=== PATIENT | female | born 1970 | race Caucasian/White ===

== ENCOUNTER → 2017-11-23 | Day surgery (SDC) | payer OTHER ==
[2017-11-21 15:08] VITALS: BMI 37.5
[~2017-11-23] MED LIST: ACETAMINOPHEN 325 MG TABLET (FP) PO PRN; BUPIVACAINE HCL/PF 0.5% (5MG/ML) 10 ML VIAL ONE; DESFLURANE GAS 240 ML BOTTLE IH ONE; DEXAMETHASONE SOD PHOSPHATE 4 MG/1 ML VIAL ONE; ENOXAPARIN NA (PORCINE) 40 MG/0.4 ML DISP.SYRIN SQ ONE; FAMOTIDINE 20 MG PREMIXED IVPB IVPB ONE; FAMOTIDINE 20 MG/50 ML IVPB 20 MG/50 ML MG IVPB ONE; FAMOTIDINE 20 MG/50 ML IVPB 20 MG/50 ML MG IVPB SCH; LACTATED RINGERS SOLUTION 1,000 ML IV SCH; MIDAZOLAM HCL 2 MG/2 ML SINGLE DOSE VIAL ONE; ONDANSETRON 4 MG/2 ML VIAL IVPUSH PRN; PROMETHAZINE HCL 25 MG/1 ML VIAL IVPUSH ONE; PROMETHAZINE HCL 25 MG/1 ML VIAL IVPUSH PRN; PROMETHAZINE HCL 25 MG/1 ML VIAL ONE; PROPOFOL 20 ML ONE; ROCURONIUM BROMIDE 50 MG/5 ML VIAL ONE; SODIUM CHLORIDE 1,000 ML IV SCH; SUCCINYLCHOLINE CHLORIDE 200 MG/10 ML VIAL ONE; ceFAZolin SODIUM 1 GM VIAL IVPB ONE; ceFAZolin SODIUM 1 GM VIAL ONE; oxyCODONE HCL 5 MG TABLET PO PRN
[2017-11-23 11:34] LABS: URINE APPEARANCE CLEAR; URINE BILIRUBIN NEGATIVE (<2.0 mg/dL); URINE COLOR YELLOW; URINE GLUCOSE (UA) NEGATIVE (NEGATIVE); URINE KETONE NEGATIVE (NEGATIVE); URINE LEUK ESTERASE TRACE (NEGATIVE); URINE NITRITE NEGATIVE (NEGATIVE); URINE PROTEIN NEGATIVE (NEGATIVE); URINE UROBILINOGEN NEGATIVE mg/dL (0.2-1.0)
[2017-11-23 11:40] LABS: EPI CELLS RARE /HPF (FEW); URINE MUCUS RARE
--- NOTE | 2017-11-23 14:50 | SURG ---
Surgery Surveillance Operator Note Surveillance Operator: Armando Chery PA-C Date of Service: 11/23/17 Diagnosis: Morbid obesity secondary to excess calorie intake Procedure: Laprascopic gastric band, liver biopsy I was present for the entirety of the operative procedure. For further detail, please refer to operative report. Visit type - Case Type Case Type: Scheduled - New patient This patient is new to me today: Yes Date on this admission: 11/23/17
--- NOTE | 2017-11-23 15:24 | OP ---
Operative Note - Note: Operative Date: 11/23/17 Pre-Operative Diagnosis: Morbid Obesity. Elevated LFT Operation: Laparoacopic Gastric Band for Gastric Restriction. Wedge Biopsy of Liver. Diagnostic Laparoscopy Findings: 30 cc Gastric Pouch created with APS Band Wedge biopsy performed on enlarged left lobe of liver Post-Operative Diagnosis: Same as Pre-op (Hepatomegaly) Surgeon: Kunal Sena Station Examiner: Armando Chery Anesthesia: General Specimens Removed: Wedge biopsy of left lobe of liver Estimated Blood Loss (mls): 30 Operative Report Dictated: Yes
[2017-11-23 15:38] LABS: HEMATOCRIT 40.6 % (32.4-45.2); HEMOGLOBIN 13.6 GM/dL (10.7-15.3); MCH 29.8 pg (25.7-33.7); MCHC 33.5 g/dl (32.0-36.0); MEAN CELL VOLUME 88.8 fl (80-96); MEAN PLT VOLUME 7.6 fl (7.5-11.1); PLATELET COUNT 307 K/MM3 (134-434); RBC 4.57 M/mm3 (3.60-5.2); RDW 13.2 % (11.6-15.6)
[2017-11-23 16:00] LABS: ANION GAP 10 (8-16); BLOOD UREA NITROGEN 11 mg/dL (7-18); CALCIUM 8.2 mg/dL (8.5-10.1); CHLORIDE 104 mmol/L (98-107); CO2 25 mmol/L (21-32); CREATININE 0.6 mg/dL (0.55-1.02); GLUCOSE,RANDOM 200 mg/dL (74-106); POTASSIUM 3.7 mmol/L (3.5-5.1); SODIUM 139 mmol/L (136-145)
[2017-11-23 17:43] VITALS: TEMP 98.4
[2017-11-23 18:21] VITALS: BP 139/75; PULSE 90
--- NOTE | 2017-11-24 08:28 | OP ---
DATE OF OPERATION: 11/23/2017 PREOPERATIVE DIAGNOSES: 1. Morbid obesity. 2. Elevated liver function tests. POSTOPERATIVE DIAGNOSES: 1. Morbid obesity. 2. Elevated liver function tests. 3. Hepatomegaly. PROCEDURE PERFORMED: 1. Gastric band for gastric restriction. 2. Wedge biopsy of the left lobe of the liver. 3. Diagnostic laparoscopy. OPERATING SURGEON: Kunal Sena MD PROPERTY SUPERVISOR: YAMILET Cruz ANESTHESIA: General. OPERATIVE PROCEDURE: The patient was brought into the operating room, placed on the OR table in the supine position. All precautions were taken initially including padding for the back and the feet, and Venodyne boots were placed on both lower extremities. At that point, the abdomen was prepped and draped in the usual manner. A Veress needle was placed in the left upper quadrant, and a pneumoperitoneum was established. A number 12 bladeless trocar was placed in the left upper quadrant. Through that trocar, laparoscopic camera was placed. Under direct vision, a number 5 and 15 bladeless trocar placed in the right upper quadrant and a number 12 bladeless trocar below the left costal margin. A Macie liver retractor was then placed in the epigastrium to retract left lobe of liver. The left lobe was noted to be extremely enlarged, much more than usual, and combined with the elevated liver function tests, a liver biopsy was decided to be performed. With the electrocautery turned high, on the inferior edge of the liver, a wedge portion was taken with the electrocautery. This went through the capsule and with the parenchyma, and the specimen was sent off the field to Pathology as a specimen. The parenchymal bleeding was easily controlled with the electrocautery. At this juncture, the patient was placed in 20-degree reverse Trendelenburg position by Anesthesia. As the pet care assistant surgeon retracted the omentum inferiorly in the left upper quadrant, the operating surgeon grabbed the stomach and retracted it toward the patient's right side. Electrocautery was now used to score the peritoneum over the left esophagogastric junction, and it is continued superiorly until the left immanuel of the diaphragm were noted. At this point, attention was directed to the caudate lobe of the liver on the lesser curvature side of the stomach. An opening was made in the avascular plane, and then, this was continued to be divided with electrocautery. At this point, the pet care assistant surgeon retracted the stomach towards the patient's left side as the operating surgeon located the right immanuel of the diaphragm. Electrocautery was used to score the peritoneum anterior to the right immanuel, and a laparoscopic instrument was then used to make a blunt tunnel from the right to left immanuel until it was free in the left upper quadrant of the abdomen. The gastric band which was an AP standard band was then prepped by the OR team, placed through the number 15 port site. The band tube was placed with the laparoscopic instrument, which was pulled and withdrawn to the patient's right side. The band tube was placed into the band buckle which was tied or cinched down, and the band was rotated to the patient's right side. The laparoscopic instrument easily fit between the band and the anterior stomach wall. The band was then sewn in place with the Endostitch used to grab bite of stomach serosa above and below the band and tied up with a band. When it was completed, the band tubing was brought out of the number 15 port site, and under direct vision, all trocars removed, and pneumoperitoneum was released. The number 15 port site was now extended laterally, and dissection continued down to the right anterior rectus muscle fascia. Next, 2-0 Prolene sutures were placed on all 4 sides, and the port was attached to the right anterior rectus muscle. Next, 2-0 Prolene was also used to close the port site to prevent internal hernia. All trocar sites received 0.25% Marcaine, was closed with 4-0 Biosyn in subcuticular fashion. Dressings were applied. The patient awoken from anesthesia and transferred out of the operating room to the recovery room in stable condition. EXPECTED BLOOD LOSS: 30 mL. Patient transferred to recovery room in stable condition. Keegan [id number]
--- NOTE | 2017-11-28 13:39 | PATH ---
Surgical Pathology Report Patient Name: LUL ABDALLA [facility]. Rec. #: [id number] /Age/Gender: 1970 (Age: 47) / F Account: [id number] Location: [facility] SUR[facility]ICAL Taken: 11/23/2017 Received: 11/27/2017 Reported: 11/28/2017 Physicians: Kunal Sena M.D. Specimen(s) Received LIVER BIOPSY Clinical History Morbid obesity Final Diagnosis LIVER, BIOPSY: FRAGMENTS OF LIVER PARENCHYMA WITH SEVERE STEATOSIS (75-80%). NO INCREASE IN IRON AND FIBROSIS ON PERFORMED SPECIAL STAINS (IRON AND TRICHROME). Comment: Biopsy with prominent thermal artifact. Electronically Signed Sheeba Zaidi M.D. Gross Description Received in formalin labeled "liver biopsy," is a 2.0 x 1.3 x 0.3 cm aggregate of ward soft tissue fragments. The specimen is entirely submitted in one cassette. /11/27/2017 saudi/11/27/2017
== END | disposition home or self-care (01) ==
LOC: JASU-SURG 10:45
PROVIDERS: ATTEND Surgery
PROC: 0FB04ZX Excision of Liver, Percutaneous Endoscopic Approach, Diagnostic (ICD-10-PCS; 2017-11-23)
PROC: 0DV64CZ Restriction of Stomach with Extraluminal Device, Percutaneous Endoscopic Approach (ICD-10-PCS; principal; 2017-11-23 12:00)
DX: E66.01 Morbid (severe) obesity due to excess calories (principal); R94.5 Abnormal results of liver function studies
CPT/HCPCS: 43770; 47379; L8699; 36415; 74241-TC-FY; 80048; 81003; 81015; 84703; 85027; 86850; 86900; 86901; 88305-TC; 88313-TC; 94760